=== PATIENT | male | born 1985 | race Caucasian/White ===

== ENCOUNTER 2020-04-11 13:30 | Outpatient (REF) | payer BC, SELFPAY ==
[2020-04-13 15:17] LABS: SARS-CoV-2 RNA Undetected (Undetected); SARS-CoV-2 Specimen Source Nasopharynx
== END 2020-04-11 13:50 ==
LOC: NCHCN 13:30
PROVIDERS: Visit Provider Nurse Practitioner Family
DX: Z20.828 Contact with and (suspected) exposure to other viral communicable diseases (principal)
CPT/HCPCS: U0003

== ENCOUNTER 2020-06-06 10:56 | Outpatient (REF) | payer BC, SELFPAY ==
[2020-06-06 18:19] LABS: HCT 44.7 % (40.0-50.0); HGB 14.9 g/dL (13.5-17.5); MCH 29.6 pg (27.0-33.0); MCHC 33.3 % (32.0-36.0); MCV 88.9 fL (80-95); MPV 9.2 fL (8.0-11.0); Platelet Count 392 10^3/uL (130-400); RBC 5.03 10^6/uL (4.36-5.78); RDW 13.1 % (11.8-14.1); RDW-SD 42.4 fL; WBC 4.49 10^3/uL (4.4-10.8)
[2020-06-06 19:33] LABS: Iron 69 ug/dL (65-175); Total Iron Binding Capacity 383 ug/dL (250-450); Transferrin Sat 18 % (20-55)
[2020-06-06 19:36] LABS: ALT 30 U/L (16-63); AST 19 U/L (15-37); Albumin 4.3 g/dL (3.4-5.0); Alkaline Phosphatase 44 U/L (46-116); Anion Gap 6.2 mmol/L (3-11); BUN 17 mg/dL (7-18); Bilirubin, Total 0.4 mg/dL (0.2-1.0); CO2 28.8 mmol/L (21.0-32.0); CREATININE 0.85 mg/dL (0.70-1.30); Calcium 9.3 mg/dL (8.5-10.1); Chloride 103 mmol/L (98-107); Cholesterol 150 mg/dL (<200); Ferritin 76 ng/mL (26-388); Glucose 89 mg/dL (74-106); HDL Cholesterol 76 mg/dL (40-60); Potassium 4.5 mmol/L (3.5-5.1); Sodium 138 mmol/L (136-145); Total Protein 8.2 g/dL (6.4-8.2)
[2020-06-06 20:01] LABS: Triglyceride < 25 mg/dL (<150)
[2020-06-06 20:11] LABS: LDL CHOLESTEROL 65 mg/dL (<100)
== END 2020-06-06 11:16 ==
LOC: NCHCN 10:56
PROVIDERS: Visit Provider Nurse Practitioner Family
DX: Z83.2 Family history of diseases of the blood and blood-forming organs and certain disorders involving the immune mechanism (principal); Z13.220 Encounter for screening for lipoid disorders
CPT/HCPCS: 80053; 80061; 83721; 85027; 82728; 83540; 83550

== ENCOUNTER 2020-07-31 15:34 | Outpatient (REF) | payer BC, SELFPAY ==
[2020-08-04 04:27] LABS: Patient Race White; SARS-CoV-2 RNA Undetected (Undetected); SARS-CoV-2 Specimen Source Nasal
== END 2020-07-31 15:54 ==
LOC: NCHCN 15:34
PROVIDERS: PCP Nurse Practitioner Family; Visit Provider Physician Assistant
DX: Z20.828 Contact with and (suspected) exposure to other viral communicable diseases (principal)
CPT/HCPCS: U0003

== ENCOUNTER 2020-09-24 02:50 | Outpatient (CLI) | payer BC, SELFPAY ==
[2020-09-25 17:19] LABS: COVID-19 RT-PCR UVMMC Result Negative (Negative)
== END 2020-09-24 03:10 ==
PROVIDERS: PCP Nurse Practitioner Family; Visit Provider Surgery
DX: Z11.52 Encounter for screening for COVID-19 (principal); Z01.818 Encounter for other preprocedural examination
CPT/HCPCS: U0003

== ENCOUNTER 2020-09-27 09:23 | Day surgery (SDC) | payer BC, SELFPAY ==
[2020-09-27] MEDS: Lactated Ringers 1,000 ML 80 ML IV (09:56)
[2020-09-27 12:00] VITALS: BP 129/80; PULSE 65; RESP 16; TEMP 36.3; O2SAT 99
--- NOTE | 2020-09-27 12:20 | W.PM.DSUDISC ---
Discharge Plan Disposition Patient Disposition: HOME Condition: Good Discharge Details Reason For Visit: colon scope Attending Provider: Holly Magana Primary Care Provider: Bhavin Sequeira Home Meds and New Rx's Prescriptions: Continued methylphenidate HCl [Ritalin] 10 mg tablet 10 mg PO LATE AFTERNOON MDD 1 Qty: 30 RF: 0 methylphenidate HCl 54 mg tablet extended release 24hr 54 mg PO DAILY MDD 1 Qty: 30 RF: 0 Discontinued polyethylene glycol 3350 17 gram/dose powder 238 g PO ONCE Qty: 238 RF: 0 bisacodyl [Dulcolax (bisacodyl)] 5 mg tablet,delayed release (DR/EC) 5 mg PO ONCE Qty: 4 RF: 0 Discharge Instructions Additional Instructions: Findings:normal colon Follow up:repeat in 10 yrs time Please call if you develop: fevers >101.5 Nausea or Vomiting Abdominal pain that is not transient DAY SURGERY UNIT POST COLONOSCOPY INSTRUCTIONS 1. Because there will be medication in your system for the next 24 hours, you may feel a little sleepy. Your coordination will be affected. Therefore: a. Do not drive or operate dangerous equipment for 24 hours. b. Do not drink alcohol beverages for 24 hours (not even beer). c. Plan to go home and rest for the day. 2. Generally there are no restrictions on your activity after a day or so has gone by, but you may feel a bit fatigued for a few days. 3 After you arrive home you may have a light meal and return to a normal diet as you can tolerate it without feeling sick to your stomach. 4. After surgery, you may feel pain or discomfort. This should be only transient, but if it persists please contact your doctor. 5. If there are any questions regarding the findings of your procedure, please feel free to contact your doctor. 6. If you are unable to contact your doctor with a problem, contact the hospital at [phone]. 7. Continue all your regular medications unless directed otherwise. I understand the above instructions and have no questions. Signature of Patient or Responsible Adult Escort Date/Time Name of Responsible Adult Escort Signature of Nurse Date/Time Activity:: no lifting over 20#'s pr stenuous activity x 24 hrs Diet:: small light meals like 24 hrs Discharge Orders Discharge Orders: Discharge Order (Routine); Ordered 09/27/20 Ordered By: Holly Magana DS: Diagnosis Discharge Diagnosis (1) Adenomatous polyps: Status: Acute (2) Diverticula of colon: Status: Acute
--- NOTE | 2020-10-06 20:52 | W.COLOREPORT ---
Date of service: 10/06/20 Time of Service: 20:53 Colonoscopy Report Date of procedure: 09/30/20 Pre-op diagnosis general: A. polyps Post-op diagnosis procedure note: same Surgeon: Holly Magana Anesthesia proc note operative: MAC Estimated blood loss (mL): 0 Pathology: none sent Complications: None Disposition: same day Prep: Miralax/Dulcolax Retraction Time: 8 mins Procedure Description: After informed consent was obtained the patient was taken to the procedure room and placed in a left decubitous position. Monitors were applied and a time out was done. The patients name, date of , procedure, allergies to medications and metal in their body was reviewed. The patient was then sedated. Once sedated and comfortable a rectal exam was done. External exam was normal. Internal exam revealed a normal sphincter tone and no palpable masses. The prostate nl. The scope was then introduced and retrofelexed. No internal hemorrhoids were identified. The scope was then advanced to the cecum w/out difficulty. The TI and appendiceal orifice were identified. The prep was good. The scope was then slowly retracted over 8 minutes back into the rectum. There were no polyps, AVMs, or diverticula apparent. The Mucosa is pink and healthy.. The scope was removed and the patient was woken up and taken back to Same day surgery in stable condition. The patient tolerated the procedure well and there were no immediate complications. Follow up: The patient should follow up in 10 years unless they develop changes in bowel habits or other new gastrointestinal complaints.
== END 2020-09-27 12:40 | disposition home or self-care (01) ==
PROVIDERS: PCP Nurse Practitioner Family; Visit Provider Surgery
PROC: 0DJD8ZZ Inspection of Lower Intestinal Tract, Via Natural or Artificial Opening Endoscopic (ICD-10-PCS; CPT 45378; principal; 2020-09-27 10:00)
DX: Z12.11 Encounter for screening for malignant neoplasm of colon (principal); Z86.010 Personal history of colon polyps
CPT/HCPCS: 45378; J2001

== ENCOUNTER 2020-12-30 18:08 | Emergency (ER) | payer BC, SELFPAY ==
--- NOTE | 2020-12-30 18:16 | ED.GENADUL_ITS ---
Discharge Plan Disposition Patient Disposition: HOME Condition: Stable Discharge Details Clinical Impression: Abrasion, corneal Primary Care Provider: Bhavin Sequeira ED Provider: Kylee Garrison Home Meds and New Rx's Prescriptions: Continued methylphenidate HCl [Ritalin] 10 mg tablet 10 mg PO LATE AFTERNOON MDD 1 Qty: 30 RF: 0 methylphenidate HCl 54 mg tablet extended release 24hr 54 mg PO DAILY MDD 1 Qty: 30 RF: 0 Discharge Instructions Instructions: Erythromycin (Into the eye), Corneal Abrasion (ED) Additional Instructions: Your exam is concerning for a corneal abrasion near the top of your pupil. I am concerned about infection I would like for you to use the erythromycin provided 4 times a day for the next 5 days. Apply as nursing staff instructed. Please call boilermaker helper tomorrow to schedule follow-up appointment in the next few days. You may continue with Tylenol and/or ibuprofen as needed for discomfort. Sungl asses may also help If you develop fever/chills, increased pain, visual changes or other new/worsening symptoms please seek care urgently once again Referrals: [facility] [Outside] Bhavin Sequeira, RESIDENTIAL SUPERVISOR [Primary Care Provider] - Discharge Data Discharge Date/Time-TO BE ENTERED AT DEPARTURE: 12/30/20 19:05 Medical Decision Making Patient is a pleasant 35-year-old gentleman presenting today with chief complaint of possible foreign body in the left eye. He reports that this morning around 1:00 he was [place] when #impelled himself with a stick. Since that time, he reports that he is having some left eye irritation, tearing. Denies any visual changes. States that symptoms have remained constant throughout the course the day. Unknown tetanus status. Denies other injury at the time of the incident. On exam, patient appears nontoxic. No external injury is noted. No foreign body on eversion of eyelids. Patient does have fluorescein uptake at the 12 o'clock position just outside of the pupil. I not see any remaining foreign body. No evidence of globe rupture. Patient I discussed care of the corneal abrasion. He does not wear contacts. He does not wear any corrective lenses and is not routinely seen by ophthalmology. He would like to follow-up in [place] with his family as routinely seen. However, in the event he is unable to be seen up there, I did recommend [facility] which is more local. Patient will be started on erythromycin ointment. I advised on return precautions. Discussed [id number] home remedies to help with discomfort. Unable to obtain tetanus status. Will update this today patient believes is likely outside of the acceptable window. All his questions and concerns were addressed and he is in agreement this plan HPI General Mode of arrival: ambulatory . Date/Time Provider Initiated Documentation: 12/30/20 18:16 . Limitations to Documentation: no limitations . Information obtained by: patient and RN notes reviewed . History of Present Illness 35 year old M presents to the emergency department with the chief complaint of stick poked left eye, described as moderate, with intensity rated at 5. Quality is described as other (FB sensation), and is localized to the eyes and left. Patient reports no radiation. Patient started experiencing this hour(s) (0900) and it has been constant. No relieving factors improve symptom(s), No exacerbating factors reported . Patient notes no other symptoms.. Patient did receive the following treatments prior to arrival, none Related Data Home Medications Medication Instructions Recorded Confirmed methylphenidate HCl 10 mg tablet 10 mg PO LATE AFTERNOON #30 03/09/19 12/30/20 tab-cap MDD 1 methylphenidate HCl 54 mg 54 mg PO DAILY #30 tab MDD 1 03/09/19 12/30/20 tablet,extended release 24 hr Previous Rx's Medication Instructions Recorded methylphenidate HCl 10 mg tablet 10 mg PO LATE AFTERNOON #30 03/09/19 tab-cap MDD 1 methylphenidate HCl 54 mg 54 mg PO DAILY #30 tab MDD 1 03/09/19 tablet,extended release 24 hr Allergies Allergy/AdvReac Type Severity Reaction Status Date / Time No Known Allergies Allergy Unverified 09/27/20 09:57 Review of Systems Constitutional Constitutional: Reports as per HPI, Denies chills, Denies fatigue, Denies fever(s) and Reports headache(s) Eyes Eyes: Reports as per HPI ENT Ears, Nose, Mouth, and Throat: Reports headache(s) Respiratory Respiratory: Denies cough Integumentary/Breasts Skin/Breast: Reports as per HPI, Denies rash, Denies skin pain and Denies skin swelling Neurologic Neurologic: Reports headache(s) and Denies radicular pain Endocrine Endocrine: Denies fatigue [facility] Medical History (Updated 12/30/20 @ 18:47 by MARCELLO العراقي) ADHD Diarrhea Family history of hemochromatosis brother History of colon polyps Lower back pain Surgical History History of colonoscopy (~09/27/20) Family History Maternal Uncle Crohn's colitis Grandfather Colon cancer Social History Smoking/Tobacco Use Status: Never Smoking risk assessment performed?: Yes Alcohol Intake: current Alcohol Intake frequency: a few times a week Drug use: Occasionally Substance use type: marijuana Current gender identity: male Do you feel safe at home: Yes Do you feel safe in your relationship?: Yes Exam Const General: cooperative, healthy appearing, comfortable, no acute distress, well developed and well groomed Nutritional Appearance: average body habitus and well nourished Orientation: alert, awake and oriented x3 HENMT Head: normal to inspection, normocephalic and atraumatic Ears: hearing grossly normal bilaterally and external ears normal General nose exam: external nose normal and nares normal Face and sinus: normal facial exam and face symmetric Mouth: oral mucosae normal, lip normal and moist mucous membranes Eyes Visual Nation: normal visual nation by confrontation Alignment and Position: alignment normal and position normal Periorbital: periorbital findings normal Eyelids: eyelids normal (no FB when everted) Conjunctivae: conjunctival abnormality left conjunctival injection diffuse Cornea: corneas abnormal on the left fluorescein used and abrasion (irregular 3mm at 12 o'clock position) and fluorescein used Pupils: PERRL and normal by confrontation EOM: EOM intact bilaterally Resp Effort & Inspection: normal respiratory effort, able to speak in complete sentences and no respiratory distress Skin General skin exam: no rashes or lesions noted Neuro General: patient alert, patient awake and patient oriented x3 Cranial Nerves: CN's II-XI intact bilaterally Cognition: normal cognition Speech: speech normal Gait: normal gait Psych Appearance: grossly normal and well kempt Mental Status: mental status grossly normal Speech and Movement: speech and movement normal
[2020-12-30 18:19] VITALS: BP 118/79; PULSE 92; RESP 20; TEMP 36.5; O2SAT 97
[2020-12-30] MEDS: Fluorescein STRIPS 100/BOX 1 MG OP (18:27)
[2020-12-30] MEDS: Tetracaine 0.5% 4 ML BTL OP (18:27)
== END 2020-12-30 19:05 | disposition home or self-care (01) ==
PROVIDERS: Emergency Provider Physician Assistant; PCP Nurse Practitioner Family
DX: S05.02XA Injury of conjunctiva and corneal abrasion without foreign body, left eye, initial encounter (principal); W22.8XXA Striking against or struck by other objects, initial encounter
CPT/HCPCS: 90471; 99284; 99283

== ENCOUNTER 2022-04-28 20:10 | Outpatient (REF) | payer BC, SELFPAY ==
[2022-04-28 17:12] LABS: Abs Immature Grans 0.01 10^3/uL (0.0-0.06); Absolute Basophil Count 0.08 10^3/uL (0.0-0.2); Absolute Lymphocyte Count 1.71 10^3/uL (1.2-3.4); Absolute Monocyte Count 0.46 10^3/uL (0.1-0.8); Basophils % 1.6; Eosinophils % 7.9; HCT 42.9 % (40.0-50.0); HGB 14.9 g/dL (13.5-17.5); Immature Grans % 0.2; Lymphocytes % 33.8; MCH 29.8 pg (27.0-33.0); MCHC 34.7 % (32.0-36.0); MCV 86 fL (80-95); MPV 9.7 fL (8.0-11.0); Monocytes % 9.1; Neutrophils % 47.4; Platelet Count 363 10^3/uL (130-400); RDW 13.3 % (11.8-14.1); RDW-SD 41.7 fL; WBC 5.06 10^3/uL (4.4-10.8)
[2022-04-28 17:22] LABS: ALT 31 U/L (16-63); AST 20 U/L (15-37); Alkaline Phosphatase 43 U/L (46-116); Anion Gap 7.9 mmol/L (3-11); BUN 18 mg/dL (7-18); Bilirubin, Total 0.3 mg/dL (0.2-1.0); CO2 26.1 mmol/L (21.0-32.0); CREATININE 0.8 mg/dL (0.70-1.30); Calcium 8.9 mg/dL (8.5-10.1); Calculated LDL 67 mg/dL (<100); Chloride 105 mmol/L (98-107); Cholesterol 138 mg/dL (<200); Glucose 101 mg/dL (74-106); HDL Cholesterol 64 mg/dL (40-60); Potassium 4.6 mmol/L (3.5-5.1); Sodium 139 mmol/L (136-145); Total Protein 7.8 g/dL (6.4-8.2); Triglyceride 38 mg/dL (<150)
[2022-04-28 17:32] LABS: Iron 70 ug/dL (65-175); Total Iron Binding Capacity 328 ug/dL (250-450); Transferrin Sat 21 % (20-55)
== END 2022-04-28 20:11 | disposition home or self-care (01) ==
LOC: NCHCN 20:10
PROVIDERS: PCP Nurse Practitioner Family; Visit Provider Nurse Practitioner Family
DX: F90.9 Attention-deficit hyperactivity disorder, unspecified type (principal); Z76.0 Encounter for issue of repeat prescription; Z83.2 Family history of diseases of the blood and blood-forming organs and certain disorders involving the immune mechanism; Z13.220 Encounter for screening for lipoid disorders; Z87.441 Personal history of nephrotic syndrome
CPT/HCPCS: 80053; 80061; 83540; 83550; 85025

== ENCOUNTER 2023-09-04 21:02 | Emergency (ER) | payer BC, SELFPAY ==
[2023-09-04 21:05] VITALS: BP 107/75; PULSE 97; RESP 16; TEMP 37.5; O2SAT 98
--- NOTE | 2023-09-04 21:15 | DI.RAD_ITS ---
Exam(s) XR LUMBAR SPINE COMPLETE EXAM: XR LUMBAR SPINE COMPLETE CLINICAL HISTORY: Low back pain. TECHNIQUE: 2D digital imaging was performed. Five views. COMPARISON: No exams were available for comparison FINDINGS: BONES: No fracture or destructive lesion. Vertebral body heights are maintained. Minimal endplate os teophytes at L3-4 and L4-5 as well as T11-12. No facet hypertrophy identified. DISKS: Intervertebral disc spaces are maintained. ALIGNMENT: Minimal dextroscoliosis. No spondylolysis or spondylolisthesis. SOFT TISSUE: Normal. IMPRESSION: Minimal scoliosis. Minimal degenerative changes. DATA REPOSITORY: RADIATION DOSE DELIVERED:
--- NOTE | 2023-09-04 21:21 | ED.GENADUL_ITS ---
Discharge Plan Disposition Patient Disposition: Home Condition: Stable Discharge Details Clinical Impression: Lumbago Primary Care Provider: Bhavin Esparza ED Provider: Kassandra Lockett Home Meds and New Rx's Prescriptions: New prednisone 20 mg tablet 40 mg PO DAILY 5 Days Qty: 10 0RF Rx Instructions: Take two tablets by mouth twice daily x 5 days No Action methylphenidate HCl [Ritalin] 10 mg tablet 10 mg PO LATE AFTERNOON MDD 1 Qty: 30 0RF tacrolimus 0.1 % ointment 1 applic topical BID PRN methylphenidate HCl 54 mg tablet extended release 24hr 54 mg PO DAILY MDD 1 Qty: 28 0RF Discharge Instructions Instructions: Low Back Strain (ED), Lower Back Exercises (ED) Additional Instructions: Please take the muscle relaxer Flexeril as prescribed up to 3 times daily. Alternate ice and heat. You may also apply topical Biofreeze or similar. He can get lidocaine patches [id number] and keep them on for 12 to 24 hours. Please take Tylenol or Ibuprofen with food every 4-6 hours as needed for pain and swelling. Take the prednisone as directed to help decrease inflammation. Follow up with primary care provider in 3-5 days. Return to ED sooner if any worsening pain not relieved by Tylenol or ibuprofen, problems urinating or concerns. Increase oral fluids. Stand Alone Forms: Work Release Referrals: Bhavin Esparza, LAND MANAGEMENT SUPERVISOR [Primary Care Provider] - 5 days Medical Decision Making 38-year-old male presents to the ER with chief complaint of lower back pain. Reports was carrying some heavy wood approximately an hour prior to arrival when he reports his back went out and he went down to his knees. Denies any trauma or falls recently. No history of back surgeries. He denies any saddle anesthesia or loss of bowel or bladder control. Pain does radiate down to the his mid buttock. He does have midline L-spine tenderness with palpation, no crepitus, no step-off. L-spine x-ray ordered, Flexeril, lidocaine patch and 60 mg of Toradol IM. Patient still c/o pain, ice pack and Prednisone 40 mg PO ordered. Percocet ordered. Discussed x-ray results with patient he verbalized understanding. Strict home care and follow-up care and red flags to strict return instructions to return for any loss of bowel or bladder control, saddle anesthesia, radiation of pain or concerns. He is Imaging Data Radiologic Study: Imaging: X-Ray Radiologist's impression: Age: 38 years old Clinical indication: Other: Low back pain TECHNIQUE: Imaging protocol: Radiologic exam of the lumbosacral spine. Views: 4 or 5 views. COMPARISON: No relevant prior studies available. FINDINGS: Bones/joints: Mild dextroscoliosis centered at L4. No fractures. No focal bone lesions. Facet joints are unremarkable. Sacrum and sacroiliac joints are unremarkable. Soft tissues: Paravertebral soft tissues are unremarkable. IMPRESSION: 1. No acute findings. 2. Mild dextroscoliosis at the L4-L5 level. 3. No significant degenerative features. 4. Soft tissues are unremarkable. Thank you for allowing us to participate in the care of your patient. Dictated and Authenticated by: Dandre Apple MD [facility] General Mode of arrival: wheelchair . Date/Time Provider Initiated Documentation: 09/04/23 21:11 . Limitations to Documentation: no limitations . Information obtained by: patient, family, RN notes reviewed and old records reviewed . HPI Narrative: 38-year-old male presents to the ER with chief complaint of lower back pain. Reports was carrying some heavy wood approximately an hour prior to arrival when he reports his back went out and he went down to his knees. Denies any trauma or falls recently. No history of back surgeries. He denies any saddle anesthesia or loss of bowel or bladder control. Pain does radiate down to the his mid buttock. He does have midline L-spine tenderness with palpation, no crepitus no step-off. Related Data Home Medications Medication Instructions Recorded Confirmed tacrolimus 0.1 % topical ointment 1 applic topical BID PRN 11/04/22 09/04/23 methylphenidate HCl 10 mg tablet 10 mg PO LATE AFTERNOON #30 07/21/23 09/04/23 (Ritalin) tab-caps methylphenidate HCl 54 mg 54 mg PO DAILY #28 tabs 09/02/23 09/04/23 tablet,extended release 24 hr prednisone 20 mg tablet 40 mg (2 x 20 mg) PO DAILY 5 days 09/04/23 #10 tabs Previous Rx's Medication Instructions Recorded methylphenidate HCl 10 mg tablet 10 mg PO LATE AFTERNOON #30 07/21/23 (Ritalin) tab-caps methylphenidate HCl 54 mg 54 mg PO DAILY #28 tabs 09/02/23 tablet,extended release 24 hr prednisone 20 mg tablet 40 mg (2 x 20 mg) PO DAILY 5 days 09/04/23 #10 tabs Allergies Allergy/AdvReac Type Severity Reaction Status Date / Time No Known Allergies Allergy Unverified 09/04/23 21:10 General Stated Complaint: Nk/Back Pain VICTORIANO: 3 Review of Systems Constitutional Constitutional: Denies weakness ENT Ears, Nose, Mouth, and Throat: Denies neck pain Musculoskeletal Musculoskeletal: Reports abnormal gait, Reports back pain, Denies loss of height, Denies neck pain, Denies numbness, Reports stiffness and Denies tingling Neurologic Neurologic: Reports abnormal gait, Denies numbness, Denies radicular pain, Denies restless legs, Denies convulsions, Denies tingling, Denies paresthesias and Denies weakness PFSH All Active Problems (Updated 09/04/23 @ 22:25 by Kassandra Lockett NP) Lumbago (Acute) Asymmetrical hearing loss (Acute) COVID (Acute) Decreased hearing (Acute) Tendonitis (Acute) Perianal dermatitis (Acute) Diverticula of colon (Acute) Adenomatous polyps (Acute) ADHD (Acute) Medical History Right knee pain Nephrotic syndrome Abrasion, corneal History of colon polyps Family history of hemochromatosis brother Diarrhea Lower back pain Dental abscess Submandibular lymphadenitis Surgical History Hx of vasectomy History of colonoscopy (~09/27/20) Family History Maternal Uncle Crohn's colitis Grandfather Colon cancer Mother Asthma Heart disease Father Alcohol use disorder Brother No problems noted. Brother , 18 Substance use disorder Son Asthma Son No problems noted. Daughter Diabetes Maternal Grandfather , 70's No problems noted. Paternal Grandfather , 80's Alcohol use disorder Cancer Stomach Maternal Grandmother , 30's No problems noted. Paternal Grandmother , 70's Cancer Lymphoma Social History Smoking/Tobacco Use Status: Former Tobacco Use tobacco type: cigars Quit Date: 09/06/13 Tobacco: How many years used: 2 Second Hand Exposure: Yes Smoking risk assessment performed?: Yes Alcohol Intake: current Alcohol Intake frequency: a few times a week Alcohol type: beer Drug use: Daily Substance use type: marijuana Caregiver/Support person: No Household members: spouse and children Housing: house Communication Needs: None Pets and animals: Yes Pets and animals: dog(s) Sexually active: Yes Do you think of yourself as: straight/heterosexual Current gender identity: male What is your relationship status?: How often do you talk on the phone with friends or family?: three or more times per week How often do you get together with friends or relatives?: three or more times per week How often do you attend spiritism or mosque services?: decline to answer Do you belong to any clubs or organized social groups?: no Panel score (0-1 are the most socially isolated patients): 2 What type of physical activity do you participate in: none Frequency: does not exercise Leighann/Sabianism: No preference Special leighann needs: No Seatbelt use: always Helmet use: Yes Helmet use: always Drive intox or ride w/intox automobile drivers: No Do you feel safe at home: Yes Do you feel safe in your relationship?: Yes Exam Back/Spine/Pelvis Back: no CVA tenderness Cervical Spine: normal cervical lordosis Thoracic/Lumbar Spine: thoraco-lumbar ROM limited and lumbar spinal tenderness Pelvis: no buttock tenderness Course Vital Signs Vital signs: Vital Signs Temperature 37.5 C 09/04/23 21:05 Pulse 97 H 09/04/23 21:05 Respiratory Rate 16 09/04/23 21:05 Blood Pressure 107/75 09/04/23 21:05 Pulse Oximetry 98 09/04/23 21:05 Temperature 37.5 C 09/04/23 21:05 Temperature Source Skin 09/04/23 21:05 Pulse 97 H 09/04/23 21:05 Respiratory Rate 16 09/04/23 21:05 Blood Pressure 107/75 09/04/23 21:05 Blood Pressure Position Sitting 09/04/23 21:05 Pulse Oximetry 98 09/04/23 21:05 Oxygen Delivery Method Room Air 09/04/23 21:05 Oxygen Flow Rate 0 09/04/23 21:05 Pain Level 10 12/30/23 21:05 Comment no pain at rest while sitting in wheelchair 09/04/23 21:05 PAWSS Have you Been Recently Intoxicated or Drunk Within the Last 30 days?: No Have you Ever Experienced Previous Episodes of Alcohol Withdrawal?: No Have you ever Experienced Withdrawal Seizures?: No Have you ever Experienced Delirium Tremens(DT)s?: No Have you ever undergone Alcohol Rehabilitation Treatment (i.e, inpt ot outpati ent treatment programs)?: No Have you ever Experienced Blackouts?: No Have you ever Combined Alcohol with other Downers within the last 90 days?: No Have you ever Combined Alcohol with any other Substance of Abuse during the last 90 days?: No Positive Blood Alcohol level on Presentation? [PCS.BAL]: No Evidence of Increased Autonomic Activity (i.e. HR>120, tremor, sweating, agitation, nausea)?: No Result: 0
[2023-09-04] MEDS: Cyclobenzaprine 10 MG TAB PO (21:32)
[2023-09-04] MEDS: Ketorolac 60 MG/2 ML VIAL IM (21:32)
[2023-09-04] MEDS: Lidocaine 5% Patch 1 PATCH TP (21:32)
--- NOTE | 2023-09-04 23:01 | DI.VRAD_ITS ---
PROCEDURE INFORMATION: Exam: XR Lumbosacral Spine Exam date and time: 09/04/2023 9:39 PM Age: 38 years old Clinical indication: Other: Low back pain TECHNIQUE: Imaging protocol: Radiologic exam of the lumbosacral spine. Views: 4 or 5 views. COMPARISON: No relevant prior studies available. FINDINGS: Bones/joints: Mild dextroscoliosis centered at L4. No fractures. No focal bone lesions. Facet joints are unremarkable. Sacrum and sacroiliac joints are unremarkable. Soft tissues: Paravertebral soft tissues are unremarkable. IMPRESSION: 1. No acute findings. 2. Mild dextroscoliosis at the L4-L5 level. 3. No significant degenerative features. 4. Soft tissues are unremarkable. Dictated and Authenticated by: Dandre Apple MD. Ordering:RASHAUN Cannon MD
[2023-09-04] MEDS: predniSONE 20 MG TAB 40 MG PO (23:06)
[2023-09-04] MEDS: oxyCODONE 5 mg/Acetaminophen 325 mg TAB 1 TAB PO (23:24)
== END 2023-09-05 00:16 | disposition home or self-care (01) ==
PROVIDERS: Emergency Provider Registered Nurse Emergency; PCP Nurse Practitioner Family
DX: S39.012A Strain of muscle, fascia and tendon of lower back, initial encounter (principal); X50.0XXA Overexertion from strenuous movement or load, initial encounter; Y93.89 Activity, other specified; Y92.017 Garden or yard in single-family (private) house as the place of occurrence of the external cause; Z87.891 Personal history of nicotine dependence
CPT/HCPCS: 96372; 99283; 72110; J1885; J7512

== ENCOUNTER → 2023-09-07 00:46 | Outpatient (CLI) | payer BC, SELFPAY ==
--- NOTE | 2023-09-07 07:30 | DI.MRI_ITS ---
Exam(s) MR IAC BRAIN WO/W EXAM: MR IAC BRAIN WO/W CLINICAL HISTORY: Asymmetrical hearing loss,H91.8x3. TECHNIQUE: Multiplanar multisequence MRI of the brain and internal auditory canals was performed. CONTRAST MATERIAL: IV Contrast: 18 mL of Dotarem contrast administered. COMPARISON: CT NECK WITH CONTRAST from 11/10/2015 FINDINGS: VENTRICLES AND EXTRA AXIAL SPACES: Normal in size and morphology for the patient's age. HEMORRHAGE: None. CEREBRAL PARENCHYMA: No focus of restricted diffusion to suggest acute infarct. There is an area of a bnormal signal associated with gyri in the posterior right parietal lobe. It is isointense to the gr ay matter on the T2 weighted images and the T1 weighted images. There is no mass effect or enhanceme nt following contrast administration. The gradient images show no evidence of hemorrhage. MIDLINE SHIFT: None. BRAINSTEM/CEREBELLUM: Normal. CALVARIUM: Normal. ENHANCEMENT: No suspicious enhancement identified. VISUALIZED PARANASAL SINUSES/MASTOIDS: Mucous retention cysts or polyps are seen in the maxillary sin uses bilaterally. There is mucosal thickening in the maxillary sinuses bilaterally. The remaining v isualized paranasal sinuses and mastoid air cells are clear. [place]: Normal flow void. [place]: Unremarkable. IAC/CP ANGLE: The internal auditory canals are within normal limits. The cerebellar pontine angles ar e unremarkable. No enhancing lesions are seen. Visualized portion of the facial nerves appear within normal limits. OTHER FINDINGS: None. IMPRESSION: 1. No evidence of an mass or abnormal mint enhancement seen in the internal auditory canals or cerebe llopontine angles. 2. No evidence of an acute infarct. 3. Abnormal signal seen in the posterior aspect of the right parietal lobe. It is isointense to the g ray matter on the T1 weighted images and T2 weighted images. There is no mass effect or enhancement f ollowing contrast administration. Differential considerations include santiago matter heterotopia, cortic al dysplasia or neoplasm. Demyelinating processes should also be considered. Unexpected findings DATA REPOSITORY:
[2023-09-07] MEDS: Normal Saline Flush 10 ML SYR IVP (10:28)
[2023-09-07] MEDS: Gadoterate meglumine 20 ML SYRINGE 18 ML IVP (10:29)
== END ==
PROVIDERS: PCP Nurse Practitioner Family; Visit Provider Registered Nurse Maternal Newborn
DX: H91.8X3 Other specified hearing loss, bilateral (principal)
CPT/HCPCS: 70553

== ENCOUNTER → 2023-09-23 02:07 | Outpatient (CLI) | payer BC, SELFPAY ==
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
== END ==
PROVIDERS: PCP Nurse Practitioner Family; Visit Provider Nurse Practitioner Family
DX: M25.78 Osteophyte, vertebrae (principal); M99.63 Osseous and subluxation stenosis of intervertebral foramina of lumbar region
CPT/HCPCS: 72148

== ENCOUNTER → 2023-09-28 03:05 | Outpatient (CLI) | payer BC, SELFPAY ==
--- NOTE | 2023-09-28 06:45 | DI.MRI_ITS ---
Exam(s) MR CERVICAL SPINE WO EXAM: MR CERVICAL SPINE WO CLINICAL HISTORY: no improve with PT, brain MRI w/ ? demyelination,ABNL MRI,R93.89 TECHNIQUE: Multiplanar multisequence MRI of the cervical spine was performed without intravenous con trast. COMPARISON: CT NECK WITH CONTRAST from 11/10/2015 FINDINGS: BONES: Vertebral body heights are maintained. Intervertebral disc spaces are normal. Alignment is nor mal. Degenerative endplate signal changes are present particularly at C5-C6. There is a hemangioma se en in the T1 vertebral body and right pedicle. There is mucosal thickening in the maxillary sinuses bilaterally. There also appear to be small mucous retention cysts in the maxillary sinuses bilateral ly. CERVICAL CORD: Craniovertebral junction is unremarkable. The cervical cord is normal size and signal intensity. SOFT TISSUES: Unremarkable. C2-3: No disc herniation or bulge is identified. No significant central spinal canal or neural forami nal stenosis. C3-4: No disc herniation or bulge is identified. No significant central spinal canal or neural forami nal stenosis C4-5: No disc herniation or bulge is identified. No significant central spinal canal or neural forami nal stenosis C5-6: There is prominence of the osteophyte disc complex. No significant central spinal canal stenos is is seen. There is mild narrowing of the neural foramen bilaterally. C6-7: No disc herniation or bulge is identified. No significant central spinal canal or neural forami nal stenosis C7-T1: No disc herniation or bulge is identified. No significant central spinal canal or neural ike inal stenosis IMPRESSION: 1. There is normal appearance of the spinal cord. No abnormal signal is identified in the spinal cor d. 2. Degenerative changes seen at C5-C6 resulting in bilateral mild neural foraminal narrowing. 3. Bilateral maxillary sinusitis. DATA REPOSITORY:
--- NOTE | 2023-09-28 06:45 | DI.MRI_ITS ---
Exam(s) MR THORACIC SPINE WO EXAM: MR THORACIC SPINE WO CLINICAL HISTORY: no improve with PT, brain MRI w/ ? demyelination,SCOLIOSIS,LUMBAGO,ABNL MRI. TECHNIQUE: Multiplanar multisequence MRI of the Thoracic spine was performed. COMPARISON: No exams were available for comparison FINDINGS: Bones: The vertebral body heights are well maintained. Alignment is satisfactory. There are hemangiom as seen in several thoracic vertebral bodies. Cord: The thoracic cord is normal size and signal intensity. No intrinsic cord lesion is present. Discs: No disc herniation or bulge is present. Soft tissues: Normal. T1-2: No disc herniation or bulge is identified. No central spinal canal or neural foraminal stenosi s. T2-3: No disc herniation or bulge is identified. No central spinal canal or neural foraminal stenosi s. T4-5: No disc herniation or bulge is identified. No central spinal canal or neural foraminal stenosi s. T5-6: No disc herniation or bulge is identified. No central spinal canal or neural foraminal stenosis . T6-7: No disc herniation or bulge is identified. No central spinal canal or neural foraminal stenosis . T7-8: No disc herniation or bulge is identified. No central spinal canal or neural foraminal stenosis . T8-9: No disc herniation or bulge is identified. No central spinal canal or neural foraminal stenosis . T9-10: No disc herniation or bulge is identified. No central spinal canal or neural foraminal stenosi s. T10-11:No disc herniation or bulge is identified. No central spinal canal or neural foraminal stenosi s. T11-12: No disc herniation or bulge is identified. No central spinal canal or neural foraminal stenos is. T12-L1: No disc herniations or bulges are present. No central spinal canal or neural foraminal steno sis. IMPRESSION: 1. Normal signal in the spinal cord. No evidence of an intrinsic cord lesion. 2. No focal disc herniation, central spinal canal or neural foraminal stenosis is seen in the thoraci c spine. DATA REPOSITORY:
== END ==
PROVIDERS: PCP Nurse Practitioner Family; Visit Provider Nurse Practitioner Family
DX: M99.61 Osseous and subluxation stenosis of intervertebral foramina of cervical region; J32.0 Chronic maxillary sinusitis
CPT/HCPCS: 72141; 72146

== ENCOUNTER 2024-05-04 13:09 | Outpatient (CLI) | payer OTHER, SELFPAY ==
[2024-05-04 12:47] LABS: Abs Immature Grans 0.01 10^3/uL (0.0-0.06); Absolute Basophil Count 0.08 10^3/uL (0.0-0.2); Absolute Eosinophil Count 0.11 10^3/uL (0.0-0.7); Absolute Lymphocyte Count 1.79 10^3/uL (1.2-3.4); Absolute Monocyte Count 0.45 10^3/uL (0.1-0.8); Absolute Neutrophil Count 2.39 10^3/uL (1.2-6.7); Basophils % 1.7 %; Eosinophils % 2.3 %; HCT 41.5 % (40.0-50.0); HGB 14.4 g/dL (13.5-17.5); Immature Grans % 0.2 %; Lymphocytes % 37.1 %; MCHC 34.7 % (32.0-36.0); MCV 87 fL (80-95); MPV 9.1 fL (8.0-11.0); Monocytes % 9.3 %; Neutrophils % 49.4 %; Platelet Count 365 10^3/uL (130-400); RDW 13.2 % (11.8-14.1); RDW-SD 41.5 fL; WBC 4.83 10^3/uL (4.4-10.8)
[2024-05-04 13:04] LABS: Anion Gap 6.8 mmol/L (3-11); BUN 14 mg/dL (7-18); CO2 28.2 mmol/L (21.0-32.0); CREATININE 0.9 mg/dL (0.70-1.30); Calcium 9.2 mg/dL (8.5-10.1); Chloride 102 mmol/L (98-107); Estimated GFR 112.11 (mL/min/1.73m2); Glucose 96 mg/dL (74-106); Potassium 4.1 mmol/L (3.5-5.1); Sodium 137 mmol/L (136-145)
== END 2024-05-04 13:10 | disposition home or self-care (01) ==
LOC: LBO 13:09
PROVIDERS: PCP Nurse Practitioner Family; Visit Provider Neurological Surgery
DX: Z01.818 Encounter for other preprocedural examination (principal)
CPT/HCPCS: 36415; 80048; 85025

== ENCOUNTER 2025-07-03 14:00 | Emergency (ER) | payer BC, SELFPAY ==
[2025-07-03 14:13] VITALS: BP 121/80; PULSE 98; RESP 22; TEMP 36.3; O2SAT 96
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
--- NOTE | 2025-07-03 14:30 | DI.RAD_ITS ---
Exam(s) XR FEMUR RT EXAM: XR FEMUR RT CLINICAL HISTORY: trauma. TECHNIQUE: 2D digital imaging was performed of the right femur. Five images were obtained. AP and lateral views were obtained. COMPARISON: No exams were available for comparison FINDINGS: BONES: No acute fracture is present. No bony destructive lesion is seen. Visualized portion of knee and hip joints are unremarkable. SOFT TISSUE: Normal. IMPRESSION: Unremarkable radiographs of the right femur. DATA REPOSITORY: RADIATION DOSE DELIVERED:
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
[2025-07-03] MEDS: ACETAMINOPHEN 1,000 MG/100 ML BAG 400 MG IVPB (14:49)
[2025-07-03 14:59] LABS: Abs Immature Grans 0.05 10^3/uL (0.0-0.06); HCT 44.4 % (40.0-50.0); HGB 15.2 g/dL (13.5-17.5); Immature Grans % 0.5 %; MCH 29.2 pg (27.0-33.0); MCHC 34.2 % (32.0-36.0); MCV 85 fL (80-95); MPV 8.9 fL (8.0-11.0); Platelet Count 361 10^3/uL (130-400); RBC 5.20 10^6/uL (4.36-5.78); RDW 13.2 % (11.8-14.1); RDW-SD 41.2 fL; WBC 10.74 10^3/uL (4.4-10.8)
[2025-07-03 15:08] LABS: INR 1.1 (0.9-1.1); Prothrombin Time 10.6 sec (9.1-11.1)
[2025-07-03] MEDS: Normal Saline - Diluent 50 ML VIAL IJ (15:11)
[2025-07-03] MEDS: Normal Saline Flush 10 ML SYR IVP (15:11)
[2025-07-03] MEDS: Omnipaque 350 MG/ML 100 ML BTL IJ (15:12)
[2025-07-03 15:14] LABS: ALT 37 U/L (16-63); AST 23 U/L (15-37); Albumin 4.0 g/dL (3.4-5.0); Alkaline Phosphatase 54 U/L (46-116); Anion Gap 9.7 mmol/L (3-11); BUN 15 mg/dL (7-18); Bilirubin, Total 0.6 mg/dL (0.2-1.0); CO2 26.3 mmol/L (21.0-32.0); Calcium 8.7 mg/dL (8.5-10.1); Chloride 104 mmol/L (98-107); Creatine Kinase 215 U/L (39-308); Glucose 96 mg/dL (74-106); Potassium 3.8 mmol/L (3.5-5.1); Sodium 140 mmol/L (136-145); Total Protein 8.1 g/dL (6.4-8.2)
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
--- NOTE | 2025-07-03 15:30 | DI.CT_ITS ---
Exam(s) CT CHEST/ABD/PEL W CT THORACIC LUMBAR SPINE REC EXAM: CT THORACIC LUMBAR SPINE REC and CT chest, abdomen and pelvis with CLINICAL HISTORY: trauma:mid and low back pain TECHNIQUE: Imaging Protocol: Axial computed tomography images with coronal and sagittal reformatted images were created and reviewed. Lung Computer Aided Detection (CAD) was utilized. CONTRAST MATERIAL: Intravenous: Omnipaque 350 contrast volume:120 mL Oral: No COMPARISON: CT NECK WITH CONTRAST from 11/10/[address] CHEST/ABD/PEL W from 07/03/2025 FINDINGS: CHEST: Tracheobronchial tree: Patent where visualized. No evidence of bronchiectasis. Pulmonary parenchyma: No consolidation or dominant measurable mass. No architectural distortion. There is atelectasis in the lung bases. Visualized thyroid gland: Unremarkable. Mediastinum and Sheree: No dominant adenopathy or fluid collection. The esophagus is unremarkable. Pleura: No effusion or pneumothorax. Heart: The heart is not dilated. No coronary artery calcifications are seen. No pericardial effusion. Pulmonary arteries: Due to the timing of the bolus, pulmonary artery opacification is suboptimal for evaluation of pulmonary artery emboli. Aorta: Thoracic aorta non-dilated. Lymph nodes: Within normal limits. Soft tissues: There is mild gynecomastia. Bones:Within normal limits for the patient's age. CT thoracic spine recons: There are mild degenerative changes seen in the thoracic spine.There is no acute fracture or subluxation is seen in the thoracic spine. CT lumbar spine recons: Age-appropriate mild degenerative changes are seen in the lumbar spine.No acute fractures or subluxations present. ABDOMEN: Liver: There is diffuse decreased attenuation of the liver consistent with fatty infiltration. No measurable mass. Portal, Superior Mesenteric, and Splenic Veins: Unremarkable. Gallbladder and Biliary Tract: No radiodense calculus or dilation. Pancreas: Normal density, no abnormal calcifications or inflammatory process. Spleen: Normal. Adrenals: No masses seen. Kidneys: Normal size, contour and axis. No radiodense stones or obstructive uropathy. No masses seen. Abdominal Aorta: Abdominal portion non-dilated. Bowel: No obstruction or bowel wall thickening. Appendix is unremarkable. Peritoneal Cavity: No ascites, collection or mesenteric inflammatory response. No free air. Lymph Nodes: Within normal limits. Bones: Within normal limits for the patient's age. Soft Tissues: There is a small fat containing left inguinal hernia. PELVIS: Bladder: Symmetric distention, no gross wall thickening. Reproductive Organs: Unremarkable as visualized. Lymph Nodes: Within normal limits. Bones: Within normal limits. IMPRESSION: 1. No acute pulmonary process. 2. No acute fracture or subluxation in the thoracic or lumbar spine. 3. No acute abdominal or pelvic organ injury. RADIATION DOSE DELIVERED: 1,313.03mGy.cm Total DLP DATA REPOSITORY: All CT scans at this facility are submitted to the National Radiology Data Registry (NRDR) Dose Index Registry (DIR) with the [employer] ([employer]). RADIATION OPTIMIZATION: All CT scans at this facility use at least one of these dose optimization techniques: automated exposure control; mA and/or kV adjustment per patient size (includes targeted exams where dose is matched to clinical indication); or iterative reconstruction.
[2025-07-03 16:26] VITALS: BP 129/74; PULSE 80; RESP 16; O2SAT 98
== END 2025-07-03 16:46 | disposition home or self-care (01) ==
LOC: ER 16:37
PROVIDERS: Emergency Provider Emergency Medicine; PCP Nurse Practitioner Family
DX: M54.2 Cervicalgia (principal); M54.9 Dorsalgia, unspecified; V86.55XA Driver of 3- or 4- wheeled all-terrain vehicle (ATV) injured in nontraffic accident, initial encounter
CPT/HCPCS: 99284; 99285; 73552; 74177; 80053; 82550; 96365; 96366; 70450; 71260; 72125; 73610; 73630; 83605; 85025; 85610; J0131; J3490